=== PATIENT | male | born 1940 | race Native Hawaiian/Other Pacific Islander ===

== ENCOUNTER 2017-12-03 12:37 | Outpatient (CLI) | payer OTHER ==
[~2017-12-03 12:37] MED LIST: ADLT ASA LOW81 MG PO; CRESTOR20 MG PO; EZET10TA13 OR; LISI10TA11 PO; XARELTO20 MG OR; Z PAK PO
== END 2017-12-03 12:38 | disposition short-term general hospital (02) ==
LOC: AMB 12:37
DX: I46.9 Cardiac arrest, cause unspecified (principal)
CPT/HCPCS: A0425; A0427

== ENCOUNTER 2017-12-03 12:45 | Emergency (ER) | payer OTHER ==
[~2017-12-03] VITALS: Ht 182.9 cm; Wt 77.1 kg
[2017-12-03 12:40] VITALS: BP 0/0; TEMP 94.2
== END 2017-12-03 14:10 | disposition expired ==
LOC: ED 12:45
PROC: 5A12012 Performance of Cardiac Output, Single, Manual (ICD-10-PCS; principal; 2017-12-03)
PROC: 0T9B70Z Drainage of Bladder with Drainage Device, Via Natural or Artificial Opening (ICD-10-PCS; 2017-12-03)
DX: I46.9 Cardiac arrest, cause unspecified (principal)
CPT/HCPCS: 36415; 51702; 96365; 96375; 96376; 99291; J0171; J0461; J3490